=== PATIENT | female | born 1960 | race Caucasian/White ===

== ENCOUNTER 2022-04-13 12:54 | Emergency (ER) | payer OTHER ==
[2022-04-13 13:19] VITALS: BP 152/60
[2022-04-13] MEDS ORDERED: KETOROLAC 30 MG/ML VIAL IM STA (15:23)
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
== END 2022-04-13 15:43 | disposition home or self-care (01) ==
LOC: ED 12:54
DX: Z04.1 Encounter for examination and observation following transport accident (principal); M54.6 Pain in thoracic spine
CPT/HCPCS: 96372; 99282; 99283